=== PATIENT | male | born 1980 | race Caucasian/White ===

== ENCOUNTER 2019-04-19 05:51 | Emergency (ER) | payer BC, OTHER ==
[~2019-04-19] VITALS: Ht 162.6 cm; Wt 76.9 kg
[~2019-04-19 05:51] MED LIST: IBUP-1542 PO; POLY10DR19 RIGHT EYE
[2019-04-19 05:52] VITALS: BP 123/80; PULSE 68; RESP 17; Ht 162.6 cm; Wt 76.9 kg
[2019-04-19] MEDS ORDERED: TETRACAINE 0.5% 4 ML OPH BOTH EYES ONE (06:30)
[2019-04-19] MEDS ORDERED: FLUORESCEIN STRIP LEFT EYE ONE (06:30)
== END 2019-04-19 07:13 | disposition home or self-care (01) ==
LOC: FTE 05:51
DX: S05.01XA Injury of conjunctiva and corneal abrasion without foreign body, right eye, initial encounter (principal); F17.210 Nicotine dependence, cigarettes, uncomplicated; X58.XXXA Exposure to other specified factors, initial encounter; Y92.9 Unspecified place or not applicable
CPT/HCPCS: 99283

== ENCOUNTER 2019-04-25 07:17 | Emergency (ER) | payer BC ==
[~2019-04-25] VITALS: Ht 172.7 cm; Wt 71.0 kg
[2019-04-25 07:20] VITALS: BP 115/74; PULSE 60; RESP 16; Ht 172.7 cm; Wt 71.0 kg
[2019-04-25] MEDS ORDERED: TETRACAINE 0.5% 4 ML OPH RIGHT EYE ONE (08:00)
[2019-04-25] MEDS ORDERED: FLUORESCEIN STRIP RIGHT EYE ONE (08:00)
== END 2019-04-25 08:22 | disposition home or self-care (01) ==
LOC: FTE 07:17
DX: T15.92XA Foreign body on external eye, part unspecified, left eye, initial encounter (principal); F17.210 Nicotine dependence, cigarettes, uncomplicated; X58.XXXA Exposure to other specified factors, initial encounter; Y92.9 Unspecified place or not applicable
CPT/HCPCS: 99283